=== PATIENT | male | born 1940 | race Caucasian/White ===

== ENCOUNTER 2019-01-26 20:17 | Observation (INO) | payer MEDICARE, OTHER ==
[~2019-01-26] VITALS: Ht 177.8 cm; Wt 76.5 kg
[2019-01-26] MEDS ORDERED: CETI5 PO (20:33)
[2019-01-26] MEDS ORDERED: CHLO25B PO (20:33)
[2019-01-26] MEDS ORDERED: CITA20 PO (20:34)
[2019-01-26] MEDS ORDERED: FISH OIL 1,0001 EACH PO (20:34)
[2019-01-26] MEDS ORDERED: DOCU100 PO (20:34)
[2019-01-26] MEDS ORDERED: Flonase 0.05% N16 GM (20:36)
[2019-01-26] MEDS ORDERED: GABA100 PO (20:36)
[2019-01-26] MEDS ORDERED: LACT PO (20:36)
[2019-01-26] MEDS ORDERED: LISI20 PO (20:37)
[2019-01-26] MEDS ORDERED: MELO7.5 PO (20:37)
[2019-01-26] MEDS ORDERED: PROP120ER PO (20:37)
[2019-01-27 05:29] LABS: Anion Gap 12 mmol/L (6-16); Blood Urea Nitrogen 26 mg/dL (8-24); Bun/Creatinine Ratio 23.6 (12.0-20.0); CO2, Blood 21 mmol/L (21-32); Calcium, Blood 9.6 mg/dL (8.5-10.1); Chloride, Blood 93 mmol/L (98-108); Glomerular Filtration Rate >60 (60-); Glucose, Blood 154 mg/dL (70-99); Potassium, Blood 3.9 mmol/L (3.5-5.5); Sodium, Blood 126 mmol/L (136-145)
--- NOTE | 2019-01-27 05:33 | NUR ---
URINE RETENTION PT WITH CHRONIC SELF CATHING AT HOME. PT REPORTS INSERTING CATHETER AT NIGHT AND ATTACHING TO LEG BAG. DR DORMAN INFORMED + NEW ORDERS OBTAINED FOR PORTER WHILE PT RESTING AND TO BE DC'D UPON PT AWAKENING. PORTER INSERTED WITH 800cc YELLOW OUT AT THIS TIME.
--- NOTE | 2019-01-27 05:51 | NUR ---
SHIFT SUMMARY PT NEW ADMIT THIS SHIFT. AAOX4. SWELLING TO LOWER LIP MINIMAL UPON ADMISSION, PT REPORTING GREATED DIMINISHED SINCE ARRIVAL TO ED. PT SBA WITH FWW, UNSTEADY, BED ALARM ON FOR SAFETY. PT DNR, PLACED ON LEFT WRIST. PT SELF CATHS X5 YEARS, NOTIFIED + ORDERS OBTAINED. ORIENTED TO ROOM + CALL LIGHT USE. PT RESTING AT THIS TIME.
[2019-01-27 05:53] LABS: Source, Urine Catheter
[2019-01-27 05:56] LABS: Appearance, Urine Clear (Clear); Bilirubin, Urine Neg (Neg); Blood, Urine Neg (Neg); Color, Urine Yellow (P-Yellow); Glucose Qualitative, Urine Neg (Neg); Ketones, Urine Neg (Neg); Leukocyte Esterase, Urine 2+ (Neg); Nitrite, Urine Neg (Neg); Protein, Urine Neg (Neg); Specific Gravity, Urine 1.005 (1.003-1.022); Urobilinogen, Urine NORM (Normal)
[2019-01-27 06:08] LABS: Bacteria Mod /hpf; Red Blood Cells, Urine 0-2 /hpf (0-2); Squamous Epithelial Cells Not Seen /hpf (Few)
--- NOTE | 2019-01-27 11:57 | NUR ---
PT AMBULATED IN HALLWAY WITH WALKER AND GAITBELT. PT BACK TO BED. ALARM IN PLACE. PRIMARY RN AWARE.
[2019-01-27] MEDS ORDERED: BENADRYL25 MG PO (12:02)
[2019-01-27] MEDS ORDERED: PROP160ER PO (12:02)
[2019-01-27] MEDS ORDERED: EPIPEN 2-P0.3 MG/0.3 (12:04)
[2019-01-27] MEDS ORDERED: Prednisone10 MG (12:05)
--- NOTE | 2019-01-27 14:11 | NUR ---
DISCHARGE SUMMARY CATHY LEFT VIA MEDICAL TRANSPORT. DENIED PAIN, WALKING WITH WALKER AND SBA IN HALLWAYS. WENT BACK TO [facility]. ORIENTED, BUT FOREGETFUL. SWELLING MOSTLY BACK TO NORMAL PER PT. PIV REMOVED, MEDS FAXED TO [place] [facility], DC INSTRUCTIONS REVIEWED WITH PT. GERMAN REMOVED AT 11AM PER PT REQUEST, HE STATES HE WILL STRAIGHT CATH UPON ARRIVAL AT HIS HOME PER HIS HOME REGIMENT. TOOK MEDS PRESCRIBED, VSS. PAPERWORK SENT HOME WITH PT AFTER GOING OVER MEDS WITH HIM. HE WILL [place] A FO[place] UP APPT AT [place].
== END 2019-01-27 13:49 ==
LOC: ER 20:17 → SURS 20:18
PROVIDERS: ADMIT Hospitalist
DX: T78.3XXA Angioneurotic edema, initial encounter (principal); N39.0 Urinary tract infection, site not specified; I10 Essential (primary) hypertension; G62.9 Polyneuropathy, unspecified; F32.9 Major depressive disorder, single episode, unspecified; E78.5 Hyperlipidemia, unspecified; Z66 Do not resuscitate; Z87.891 Personal history of nicotine dependence; Z91.048 Other nonmedicinal substance allergy status; Z91.018 Allergy to other foods; Z88.0 Allergy status to penicillin; Z88.8 Allergy status to other drugs, medicaments and biological substances; Z79.899 Other long term (current) drug therapy
CPT/HCPCS: 51701; 51702; 80048; 81001; 87077; 87086; 87186; 96372; 96372-59; 96374-59; 96375; 96375-59; 99285-25; G0378; J0171; J1200; J1650; J2930

== ENCOUNTER 2023-05-11 18:41 | Inpatient (IN) | payer OTHER ==
[~2023-05-11] VITALS: Ht 180.3 cm; Wt 75.6 kg
[~2023-05-11 18:41] MED LIST: BENADRYL25 MG PO; CETI5 PO; CHLO25B PO; CITA20 PO; DOCU100 PO; EPIPEN 2-P0.3 MG/0.3; FISH OIL 1,0001 EACH PO; Flonase 0.05% N16 GM; GABA100 PO; LACT PO; LISI20 PO; MELO7.5 PO; PROP120ER PO; PROP160ER PO; Prednisone10 MG
[2023-05-11 19:11] LABS: BASOPHILS ABSOLUTE AUTO 0.11 K/mm3 (0.00-0.23); BASOPHILS PERCENT AUTO 1 % (0-2); EOSINOPHILS ABSOLUTE AUTO 0.72 K/mm3 (0.00-0.68); EOSINOPHILS PERCENT AUTO 6 % (0-6); Hematocrit 37.3 % (37.0-53.0); Hemoglobin 12.8 g/dL (13.5-17.5); IMMATURE GRAN ABSOLUTE AUTO 0.04 K/mm3 (0.00-0.10); IMMATURE GRAN PERCENT AUTO 0 % (0-1); LYMPHOCYTES PERCENT AUTO 17 % (21-46); MONOCYTES ABSOLUTE AUTO 1.58 K/mm3 (0.16-1.47); MONOCYTES PERCENT AUTO 13 % (4-13); Mean Corpuscular HGB 29.9 pg (26.0-34.0); Mean Corpuscular HGB Conc 34.3 g/dL (31.5-36.5); Mean Corpuscular Volume 87 fL (80-100); Mean Platelet Volume 9.5 fL (9.1-12.4); NEUTROPHILS ABSOLUTE AUTO 7.49 K/mm3 (1.96-9.15); NEUTROPHILS PERCENT AUTO 62 % (41-73); Platelet Count 262 K/mm3 (150-400); RDW Coefficient Variation 13.1 % (11.7-14.2); RDW Standard Deviation 41.3 fL (35.1-46.3); Red Blood Cell Count 4.28 M/mm3 (4.30-5.90); White Blood Cell Count 12.04 K/mm3 (4.00-11.30)
[2023-05-11 19:35] LABS: Albumin, Blood 3.2 g/dL (3.4-5.0); Albumin/Globulin Ratio 0.8 (0.8-1.8); Bilirubin, Total 0.3 mg/dL (0.1-1.0); Creatinine, Blood 1.29 mg/dL (0.60-1.20); Globulin, Blood 3.9 g/dL (2.2-4.0); Potassium, Blood 3.6 mmol/L (3.5-5.5); Total Protein, Blood 7.1 g/dL (6.4-8.2)
[2023-05-11 21:43] LABS: International Normalized Ratio 0.95
[2023-05-11 22:25] VITALS: BP 142/65
[2023-05-11] MEDS ORDERED: AMLO5 PO (22:51)
[2023-05-11] MEDS ORDERED: ACET325 PO (22:51)
[2023-05-11] MEDS ORDERED: Vitamin D1000 UNI1 PO (22:52)
[2023-05-11] MEDS ORDERED: MELA3 PO (22:52)
[2023-05-11] MEDS ORDERED: MIRALAX1714 PO (22:53)
[2023-05-11] MEDS ORDERED: CRANBERRY500 M1 PO (22:54)
[2023-05-11] MEDS ORDERED: Vitamin B-12100 MCG PO (22:54)
[2023-05-11] MEDS ORDERED: MULVITA PO (22:54)
[2023-05-11] MEDS ORDERED: PSYSENPA PO (22:55)
--- NOTE | 2023-05-11 23:11 | NUR ---
ADMIT RIGHT HIP FX. PT PLEASANT, COOPERATIVE, AND A+O X4. REPORTS 5/10 PAIN TO RIGHT HIP, BUT DECLINES NARCOTICS AND ONLY WANTS TYLENOL. LAST DOSE TYLENOL GIVEN IN ER. ABLE TO WIGGLE TOES AND FLEX FEET. PEDAL PULSES PALPABLE. BRUISING NOTED TO RIGHT HIP. CHRONIC PORTER IN PLACE. IVF INFUSING PER ORDERS AND WILL BE NPO AT MIDNIGHT. PT ORIENTED TO ROOM, CALL LIGHT, AND TREATMENT PLAN AND VERB AN UNDERSTANDING. BED ALARM IN PLACE ONLY FOR MILD HX DEMENTIA.
[2023-05-12] VITALS (13 sets, daily range): BP systolic 117–180; BP diastolic 57–96
[2023-05-12 03:55] LABS: Source, Urine Foley catheter
[2023-05-12 04:03] LABS: Bilirubin, Urine Neg (Neg); Blood, Urine 4+ (Neg); Glucose Qualitative, Urine Neg (Neg); Ketones, Urine Neg (Neg); Leukocyte Esterase, Urine 3+ (Neg); Nitrite, Urine Neg (Neg); Protein, Urine Neg (Neg); Urobilinogen, Urine NORM (Normal)
[2023-05-12 04:11] LABS: BASOPHILS ABSOLUTE AUTO 0.13 K/mm3 (0.00-0.23); BASOPHILS PERCENT AUTO 1 % (0-2); EOSINOPHILS ABSOLUTE AUTO 0.97 K/mm3 (0.00-0.68); EOSINOPHILS PERCENT AUTO 7 % (0-6); Hematocrit 35.3 % (37.0-53.0); Hemoglobin 12.1 g/dL (13.5-17.5); IMMATURE GRAN ABSOLUTE AUTO 0.05 K/mm3 (0.00-0.10); IMMATURE GRAN PERCENT AUTO 0 % (0-1); LYMPHOCYTES ABSOLUTE AUTO 2.41 K/mm3 (0.84-5.20); LYMPHOCYTES PERCENT AUTO 17 % (21-46); MONOCYTES ABSOLUTE AUTO 1.74 K/mm3 (0.16-1.47); MONOCYTES PERCENT AUTO 13 % (4-13); Mean Corpuscular HGB Conc 34.3 g/dL (31.5-36.5); Mean Corpuscular Volume 88 fL (80-100); Mean Platelet Volume 9.6 fL (9.1-12.4); NEUTROPHILS ABSOLUTE AUTO 8.64 K/mm3 (1.96-9.15); NEUTROPHILS PERCENT AUTO 62 % (41-73); Platelet Count 266 K/mm3 (150-400); RDW Coefficient Variation 12.9 % (11.7-14.2); RDW Standard Deviation 41.5 fL (35.1-46.3); Red Blood Cell Count 4.03 M/mm3 (4.30-5.90); White Blood Cell Count 13.94 K/mm3 (4.00-11.30)
[2023-05-12 04:27] LABS: Appearance, Urine Hazy (Clear); Color, Urine Pale Yellow (P-Yellow)
[2023-05-12 04:28] LABS: Albumin/Globulin Ratio 0.8 (0.8-1.8); Bilirubin, Total 0.4 mg/dL (0.1-1.0); Calcium, Blood 9.7 mg/dL (8.5-10.1); Creatinine, Blood 1.12 mg/dL (0.60-1.20); Globulin, Blood 3.7 g/dL (2.2-4.0); Potassium, Blood 3.4 mmol/L (3.5-5.5); Total Protein, Blood 6.7 g/dL (6.4-8.2)
[2023-05-12 04:29] LABS: Amorphous Light (0-Heavy); Bacteria Few /hpf; Mucus Light (0-Heavy); Squamous Epithelial Cells Few /hpf (Few)
--- NOTE | 2023-05-12 05:17 | NUR ---
SHIFT SUMMARY NO ACUTE CHANGES SINCE ADMIT. NPO SINCE MIDNIGHT. IVF INFUSING PER ORDERS. TYLENOL FOR PAIN MANAGEMENT. CHRONIC PORTER CATH CHANGED AND PATENT. BED ALARM IN PLACE FOR SAFETY FOR HX DEMENTIA, BUT PT HAS BEEN A+O X4, PLEASANT AND COOPERATIVE. PT USING CALL LIGHT APPROPRIATELY.
--- NOTE | 2023-05-12 11:25 | NUR ---
Pt. is awake in bed and welcomes my visit. Pt. is pleasant and verbalizes that he is waiting for suregery on his hip. Pt. displays evidence on engagement and awareness. Considered matters of kellee and belief, and listen with empathy , interest and a calming presence. Rapport is established. Prayed for Pt. Pt. verbalized gratitude for the spiritual care visit and prayer. Will remain available to the Pt.
--- NOTE | 2023-05-12 12:30 | NUR ---
TO DAY SURGERY VIA HOSPITAL BED
--- NOTE | 2023-05-12 12:52 | NUR ---
PT HAS 20G IV TO LEFT FOREARM THAT FLUSHES WELL AND FLOWS TO GRAVITY.
--- NOTE | 2023-05-12 13:40 | NUR ---
REPORT TO SEAN TO RESUME CARE
--- NOTE | 2023-05-12 15:59 | NUR ---
PATIENT ARRIVED FROM PACU TODAY. POD 0 RIGHT TEDDY HIP-POSTERIOR PRECAUTIONS PATIENT IS A&OX4. VS ARE WNL. PATIENT DENIES PAIN AT THIS TIME. HIS RIGHT HIP HAS A PRIMEO DRESSING THAT IS C/D/I. HE IS ABLE TO WIGGLE HIS FINGERS AND TOES WHEN ASKED. PATIENT IS TOLERATING SMALL AMOUNTS OF PO INTAKE. HE IS LAYING IN BED WITH CALL LIGHT IN REACH.
--- NOTE | 2023-05-12 17:40 | NUR ---
SHIFT SUMMARY: POD 0 RIGHT TEDDY HIP WITH POSTERIOR HIP PRECAUTIONS PATIENT DOES HAVE A HX OF MILD DEMENTIA BUT IS A&OX4 DURING SHIFT AND IS ANSWERING QUESTIONS APPROPRIATELY. VS ARE WNL AND IS ON RA. PATIENTS PAIN IS MANAGED SO FAR WITH PO TYLENOL. HIS RIGHT HIP HAS A PRIMEO DRESSING THAT IS C/D/I. HE IS ABLE TO MOVE ALL FINGERS AND TOES WHEN ASKED. HE IS TOLERATING PO INTAKE. HIS CHRONIC PORTER IS DRAINING PER GRAVITY WITH YELLOW URINE OUTPUT. PATIENT IS LAYING IN BED WITH CALL LIGHT IN REACH. THE PLAN IS TO START WORKING WITH PHYSICAL AND OCCUPATIONAL THERAPY TOMORROW AND TO CONTINUE PAIN MANAGEMENT.
[2023-05-13] VITALS: BP 129/63
[2023-05-13 03:57] VITALS: BP 148/64
[2023-05-13 04:03] LABS: BASOPHILS ABSOLUTE AUTO 0.04 K/mm3 (0.00-0.23); BASOPHILS PERCENT AUTO 0 % (0-2); EOSINOPHILS PERCENT AUTO 0 % (0-6); Hematocrit 35.6 % (37.0-53.0); Hemoglobin 11.7 g/dL (13.5-17.5); IMMATURE GRAN ABSOLUTE AUTO 0.06 K/mm3 (0.00-0.10); IMMATURE GRAN PERCENT AUTO 0 % (0-1); LYMPHOCYTES ABSOLUTE AUTO 1.38 K/mm3 (0.84-5.20); LYMPHOCYTES PERCENT AUTO 9 % (21-46); MONOCYTES ABSOLUTE AUTO 1.33 K/mm3 (0.16-1.47); MONOCYTES PERCENT AUTO 8 % (4-13); Mean Corpuscular HGB 29.5 pg (26.0-34.0); Mean Corpuscular HGB Conc 32.9 g/dL (31.5-36.5); Mean Corpuscular Volume 90 fL (80-100); Mean Platelet Volume 9.4 fL (9.1-12.4); NEUTROPHILS ABSOLUTE AUTO 13.46 K/mm3 (1.96-9.15); NEUTROPHILS PERCENT AUTO 83 % (41-73); Platelet Count 298 K/mm3 (150-400); RDW Coefficient Variation 13.1 % (11.7-14.2); RDW Standard Deviation 42.7 fL (35.1-46.3); Red Blood Cell Count 3.97 M/mm3 (4.30-5.90); White Blood Cell Count 16.27 K/mm3 (4.00-11.30)
--- NOTE | 2023-05-13 04:18 | NUR ---
SHIFT SUMMARY PT RESTED WELL T/O NIGHT. HAS BEEN ABLE TO MOVE AROUND IN BED INDEP FOLLOWING HIP PRECAUTIONS. PRINEO DRESSING TO R HIP REMAINS CDI. TYLENOL FOR PAIN MANAGEMENT PRN. CHRONIC PORTER PATENT. PLAN FOR PT TO WORK WITH THERAPY TODAY. USES CALL LIGHT APPROPRIATELY.
[2023-05-13 04:21] LABS: Bun/Creatinine Ratio 21.1 (12.0-20.0); Calcium, Blood 8.8 mg/dL (8.5-10.1); Creatinine, Blood 1.14 mg/dL (0.60-1.20); Potassium, Blood 4.2 mmol/L (3.5-5.5)
[2023-05-13 08:46] VITALS: BP 135/55
[2023-05-13 13:56] VITALS: BP 134/61
--- NOTE | 2023-05-13 18:48 | NUR ---
SHIFT SUMMARY PT HAS DONE WELL TODAY. WORKED w/ PT & OT. WAS UP IN CHAIR. EATING, DRINKING, & MAKING GOOD URINE (CHRONIC PORTER). PAIN WELL CONTROLLED w/ TYLENOL. PLEASANT & ORIENTED. HOPEFUL FOR DC TO SNF TOMORROW.
[2023-05-13 19:14] VITALS: BP 127/52
[2023-05-14 05:26] VITALS: BP 149/64
[2023-05-14 07:21] VITALS: BP 135/70
[2023-05-14 14:33] VITALS: BP 128/59
--- NOTE | 2023-05-14 15:37 | NUR ---
Pt. is awake in bed and welcomes my visit. Pt. is pleasant and verbalizes his expectation to discharged to [facility] . Re-established rapport and sought to normalize the Pt. experience. Pt. displays evidencee of engagement and awareness. Prayed with Pt. Pt. verbalized gratitude for the spiritual care visit.
--- NOTE | 2023-05-14 17:09 | NUR ---
DISCHARGE SUMMARY REPORT CALLED TO JAY AT [facility]. IV REMOVED, CATH TIP INTACT. PATIENT DISCHARGED TO [facility]- PATIENT AGREEABLE TO DISCHARGE, ALL BELONGINGS GATHERED AND TAKEN WITH PATIENT INCLUDING TABLET, PHONE, WALLET, AND GLASSES. PATIENT TAKEN BY MADDY TO [facility].
== END 2023-05-14 16:44 | DRG 522 ==
LOC: ER 18:41 → SURS 21:09
PROVIDERS: Emergency Medicine; Internal Medicine; Orthopaedic Surgery; ADMIT Internal Medicine
PROC: 0SRR0JA Replacement of Right Hip Joint, Femoral Surface with Synthetic Substitute, Uncemented, Open Approach (ICD-10-PCS; principal; 2023-05-12 13:30)
DX: S72.011A Unspecified intracapsular fracture of right femur, initial encounter for closed fracture (principal); E87.6 Hypokalemia; G62.9 Polyneuropathy, unspecified; I12.9 Hypertensive chronic kidney disease with stage 1 through stage 4 chronic kidney disease, or unspecified chronic kidney disease; E78.5 Hyperlipidemia, unspecified; G89.29 Other chronic pain; N40.0 Benign prostatic hyperplasia without lower urinary tract symptoms; N18.9 Chronic kidney disease, unspecified; W18.30XA Fall on same level, unspecified, initial encounter; Z87.891 Personal history of nicotine dependence; Z88.0 Allergy status to penicillin; Z88.8 Allergy status to other drugs, medicaments and biological substances; Z91.048 Other nonmedicinal substance allergy status; Z79.899 Other long term (current) drug therapy; Z79.51 Long term (current) use of inhaled steroids; Z79.52 Long term (current) use of systemic steroids
CPT/HCPCS: 36415; 72170; 73502; 80048; 80053; 81001; 83880; 85025; 85610; 87086; 93005; 93010; 97110; 97116; 97162; 97165; 97530; 97535; 99284-25; A9270; C1776; J0171; J0690; J0696; J0735; J1100; J1200; J1885; J2405; J2704; J2795; J3010; J3480; J7030; J7050; J7120

== ENCOUNTER 2024-02-15 19:11 | Emergency (ER) | payer OTHER ==
[~2024-02-15] VITALS: Ht 180.3 cm; Wt 77.6 kg
[~2024-02-15 19:11] MED LIST changes: +ACET325 PO; +AMLO5 PO; +CRANBERRY500 M1 PO; +MELA3 PO; +MIRALAX1714 PO; +MULVITA PO; +PSYSENPA PO; +Vitamin B-12100 MCG PO; +Vitamin D1000 UNI1 PO
[2024-02-15 19:18] VITALS: BP 179/115
[2024-02-15 23:26] LABS: BASOPHILS ABSOLUTE AUTO 0.05 K/mm3 (0.00-0.23); BASOPHILS PERCENT AUTO 0 % (0-2); EOSINOPHILS ABSOLUTE AUTO 0.12 K/mm3 (0.00-0.68); EOSINOPHILS PERCENT AUTO 1 % (0-6); Hematocrit 33.4 % (37.0-53.0); Hemoglobin 11.6 g/dL (13.5-17.5); IMMATURE GRAN ABSOLUTE AUTO 0.05 K/mm3 (0.00-0.10); IMMATURE GRAN PERCENT AUTO 0 % (0-1); LYMPHOCYTES ABSOLUTE AUTO 1.89 K/mm3 (0.84-5.20); LYMPHOCYTES PERCENT AUTO 11 % (21-46); MONOCYTES ABSOLUTE AUTO 2.05 K/mm3 (0.16-1.47); MONOCYTES PERCENT AUTO 12 % (4-13); Mean Corpuscular HGB 29.7 pg (26.0-34.0); Mean Corpuscular HGB Conc 34.7 g/dL (31.5-36.5); Mean Corpuscular Volume 85 fL (80-100); Mean Platelet Volume 9.3 fL (9.1-12.4); NEUTROPHILS ABSOLUTE AUTO 12.61 K/mm3 (1.96-9.15); NEUTROPHILS PERCENT AUTO 75 % (41-73); Platelet Count 278 K/mm3 (150-400); RDW Coefficient Variation 13.4 % (11.7-14.2); RDW Standard Deviation 42.1 fL (35.1-46.3); Red Blood Cell Count 3.91 M/mm3 (4.30-5.90); White Blood Cell Count 16.77 K/mm3 (4.00-11.30)
[2024-02-15 23:45] LABS: Albumin, Blood 3.4 g/dL (3.4-5.0); Bun/Creatinine Ratio 16.5 (12.0-20.0); Calcium, Blood 10.1 mg/dL (8.5-10.1); Creatinine, Blood 0.97 mg/dL (0.60-1.20); Globulin, Blood 3.4 g/dL (2.2-4.0); Potassium, Blood 4.3 mmol/L (3.5-5.5); Total Protein, Blood 6.8 g/dL (6.4-8.2)
[2024-02-15] MEDS ORDERED: CIPR500 PO (23:55)
== END 2024-02-16 01:28 | disposition home or self-care (01) ==
LOC: ER 19:11
PROVIDERS: Emergency Medicine
DX: T83.511A Infection and inflammatory reaction due to indwelling urethral catheter, initial encounter (principal); N39.0 Urinary tract infection, site not specified; D72.829 Elevated white blood cell count, unspecified; Z87.891 Personal history of nicotine dependence; I12.9 Hypertensive chronic kidney disease with stage 1 through stage 4 chronic kidney disease, or unspecified chronic kidney disease; N18.9 Chronic kidney disease, unspecified; E78.5 Hyperlipidemia, unspecified; Z79.899 Other long term (current) drug therapy; Z79.51 Long term (current) use of inhaled steroids; Z88.0 Allergy status to penicillin; Z88.8 Allergy status to other drugs, medicaments and biological substances
CPT/HCPCS: 80053; 85025

== ENCOUNTER → 2024-06-09 | Outpatient (CLI) | payer OTHER ==
[~2024-06-09] MED LIST changes: +CIPR500 PO
[2024-06-09 13:48] LABS: Appearance, Urine Cloudy (Clear); Bilirubin, Urine Neg (Neg); Blood, Urine 5+ (Neg); Color, Urine Yellow (P-Yellow); Glucose Qualitative, Urine Neg (Neg); Ketones, Urine Neg (Neg); Leukocyte Esterase, Urine 3+ (Neg); Nitrite, Urine Neg (Neg); Protein, Urine 2+ (Neg); Urobilinogen, Urine NORM (Normal)
[2024-06-09 13:57] LABS: Amorphous Light (0-Heavy); Bacteria Many /hpf; Red Blood Cells, Urine 50-100 /hpf (0-2); Squamous Epithelial Cells Few /hpf (Few); Triple Phosphate Crystals Many /hpf
== END ==
LOC: LAB 11:00 → LAB SHORT 11:00
PROVIDERS: Internal Medicine Hematology & Oncology
DX: N39.0 Urinary tract infection, site not specified (principal)
CPT/HCPCS: 81001; 87077; 87086; 87186